=== PATIENT | male | born 1955 | race Caucasian/White ===

== ENCOUNTER → 2016-10-25 | Outpatient (CLI) | payer BC ==
--- NOTE | 2016-10-25 10:18 | CR ---
EXAMINATION: Left elbow HISTORY: Pain COMPARISON: None TECHNIQUE: 3 views FINDINGS/IMPRESSION: There is no acute osseous abnormality, dislocation, or fracture identified. Bon e mineralization and joint spaces appear normal. No joint effusion.
== END ==
LOC: MW.CHORTHO 07:42
PROVIDERS: ATTEND Orthopaedic Surgery
DX: M25.522 Pain in left elbow (principal)
CPT/HCPCS: 73080-26-LT; 73080-LT

== ENCOUNTER → 2016-12-04 | Outpatient (CLI) | payer BC ==
--- NOTE | 2016-12-04 12:58 | CR ---
EXAMINATION: Right wrist HISTORY: Pain COMPARISON: 10/12/2014 TECHNIQUE: 3 views FINDINGS: There is no acute osseous abnormality, dislocation, or fracture identified. Mild subchondr al cystic changes noted within the lunate. Advanced joint space narrowing and degenerative changes a re noted at the scaphotrapezial articulation. Bone mineralization is otherwise normal. IMPRESSION: 1. 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
== END ==
LOC: MW.CHORTHO 09:28
PROVIDERS: ATTEND Orthopaedic Surgery
DX: M25.531 Pain in right wrist (principal)
CPT/HCPCS: 73110-26-RT; 73110-RT

== ENCOUNTER 2022-07-21 10:47 | Emergency (ER) | payer OTHER ==
[2022-07-21 13:50] VITALS: BP 126/60; PULSE 68
[2022-07-21] MEDS ORDERED: Bupivacaine 0.25% 10 ML SDV INJECT ONE (14:00)
[2022-07-21] MEDS ORDERED: Lidocaine 1% 5 ML VIAL INJECT ONE (14:00)
[2022-07-21] MEDS ORDERED: Bacitracin Oint 1 GM U/D Packet TOP ONE (14:00)
== END 2022-07-21 15:08 | disposition home or self-care (01) ==
LOC: MW.ED 10:47
DX: S61.210A Laceration without foreign body of right index finger without damage to nail, initial encounter (principal); E78.00 Pure hypercholesterolemia, unspecified; Z79.899 Other long term (current) drug therapy; W26.8XXA Contact with other sharp object(s), not elsewhere classified, initial encounter
CPT/HCPCS: 12001; 99282; J3490

== ENCOUNTER 2023-11-06 10:36 | Day surgery (SDC) | payer OTHER ==
[~2023-11-06 10:36] MED LIST: Albuterol 0.083% 2.5 MG/3 ML Neb Soln NEB PRN; HYDROmorphone 1 MG/ML Syringe IVPUSH PRN; Metoclopramide 10 MG/2 ML SDV IVPUSH PRN; Morphine 2 MG/ML SYRINGE IVPUSH PRN; Naloxone 0.4 MG/ML SDV IVPUSH PRN; Ondansetron 4 MG/2 ML SDV IVPUSH PRN; ceFAZolin 2 GM in Sodium Chloride 0.9% 50 ML IV ONE; droPERidol 5 MG/2 ML SDV IVPUSH PRN; fentaNYL 50 MCG/ML SDV IVPUSH PRN
[2023-11-06] MEDS ORDERED: dexmedeTOMIDine HCl 200 MCG/2 ML SDV ONE (11:09)
[2023-11-06] MEDS ORDERED: Ketorolac 30 MG/ML SDV ONE (11:09)
[2023-11-06] MEDS ORDERED: fentaNYL 100 MCG/2 ML SDV ONE (11:09)
[2023-11-06] MEDS ORDERED: Dexamethasone 4 MG/ML 5 ML MDV ONE (11:09)
[2023-11-06] MEDS ORDERED: Ondansetron 4 MG/2 ML SDV ONE (11:09)
[2023-11-06] MEDS ORDERED: Propofol 200 MG/20 ML SDV ONE (11:09)
[2023-11-06] MEDS ORDERED: Ketamine HCL/NACL, ISO-OSM 50 MG/5 ML Syringe ONE (11:12)
[2023-11-06] MEDS ORDERED: ceFAZolin 2 GM Vial ONE (11:13)
[2023-11-06] MEDS ORDERED: Bupivacaine 0.5%/EPINEPHrine 1:200,000 30 ML SDV ONE (11:41)
[2023-11-06] MEDS: Lactated Ringers 1,000 ML IV SCH (12:36)
[2023-11-06] MEDS ORDERED: Glycopyrrolate 0.2 MG/ML SDV ONE (12:54)
[2023-11-06 14:55] VITALS: BP 150/64; PULSE 53
== END 2023-11-06 15:30 | disposition home or self-care (01) ==
LOC: MW.SDS 10:36
PROVIDERS: ATTEND Orthopaedic Surgery
DX: S83.212A Bucket-handle tear of medial meniscus, current injury, left knee, initial encounter (principal); X58.XXXA Exposure to other specified factors, initial encounter
CPT/HCPCS: 29881; J0131; J0690; J1100; J1885; J2405; J2704; J3010; J3490; J7120

== ENCOUNTER 2024-02-14 07:03 | Day surgery (SDC) | payer OTHER ==
[2024-02-14] MEDS: Lactated Ringers 1,000 ML IV SCH (07:41)
[2024-02-14] MEDS ORDERED: propofoL 50 ML ONE (07:49)
[2024-02-14] MEDS ORDERED: Lidocaine 2% 5 ML SDV ONE (07:49)
[2024-02-14] MEDS ORDERED: Glycopyrrolate 0.2 MG/ML SDV ONE (08:28)
[2024-02-14] MEDS ORDERED: Lactated Ringers 1,000 ML IV SCH (09:00)
[2024-02-14 09:02] VITALS: BP 103/61; PULSE 56
== END 2024-02-14 09:30 | disposition home or self-care (01) ==
LOC: MW.SDS 07:03
PROVIDERS: ATTEND Surgery
DX: Z12.11 Encounter for screening for malignant neoplasm of colon (principal); E78.5 Hyperlipidemia, unspecified; Z90.49 Acquired absence of other specified parts of digestive tract; Z90.89 Acquired absence of other organs; Z87.891 Personal history of nicotine dependence
CPT/HCPCS: 45378; J2704; J3490; J7120

== ENCOUNTER 2025-04-21 06:28 | Day surgery (SDC) | payer OTHER ==
[2025-04-21] MEDS ORDERED: dexmedeTOMIDine HCl 200 MCG/2 ML SDV ONE (07:01)
[2025-04-21] MEDS ORDERED: Dexamethasone 4 MG/ML 5 ML MDV ONE (07:02)
[2025-04-21] MEDS ORDERED: Ondansetron 4 MG/2 ML SDV ONE (07:02)
[2025-04-21] MEDS ORDERED: Propofol 200 MG/20 ML SDV ONE (07:03)
[2025-04-21] MEDS ORDERED: Midazolam 1 MG/ML 2 ML SDV ONE (07:03)
[2025-04-21] MEDS ORDERED: fentaNYL 100 MCG/2 ML SDV ONE (07:03)
[2025-04-21] MEDS: Lactated Ringers 1,000 ML IV SCH (07:05)
[2025-04-21] MEDS ORDERED: fentaNYL 50 MCG/ML SDV IVPUSH PRN (07:25)
[2025-04-21] MEDS ORDERED: Albuterol 0.083% 2.5 MG/3 ML Neb Soln NEB PRN (07:25)
[2025-04-21] MEDS ORDERED: Ondansetron 4 MG/2 ML SDV IVPUSH PRN (07:25)
[2025-04-21] MEDS ORDERED: Naloxone 0.4 MG/ML SDV IVPUSH PRN (07:25)
[2025-04-21] MEDS ORDERED: ceFAZolin 2 GM in Water For Injection, Sterile 20 ML IVPUSH ONE (08:00)
[2025-04-21] MEDS ORDERED: ePHEDrine 50 MG/ML SDV ONE (09:23)
[2025-04-21] MEDS ORDERED: Ketorolac 30 MG/ML SDV ONE (09:23)
[2025-04-21 11:42] VITALS: BP 132/65; PULSE 57
== END 2025-04-21 12:20 | disposition home or self-care (01) ==
LOC: MW.SDS 06:28
PROVIDERS: ATTEND Orthopaedic Surgery
DX: M25.812 Other specified joint disorders, left shoulder (principal); S43.432A Superior glenoid labrum lesion of left shoulder, initial encounter; E78.00 Pure hypercholesterolemia, unspecified; Z87.891 Personal history of nicotine dependence; Z79.899 Other long term (current) drug therapy
CPT/HCPCS: 29822; J0166; J0665; J0690; J1100; J1885; J2003; J2250; J2704; J3010; J7120; 01630; 64415; J2405; J3490